=== PATIENT | female | born 1990 | race Caucasian/White ===

== ENCOUNTER → 2016-12-26 | Outpatient (CLI) | payer MEDICAID | LOC: MW.CHOBGYN 12:32 | PROVIDERS: ATTEND Advanced Practice Midwife | DX: Z34.90 Encounter for supervision of normal pregnancy, unspecified, unspecified trimester (principal) | CPT/HCPCS: 36415; 82950; 85027; 86850 ==

== ENCOUNTER 2017-01-11 17:20 | Outpatient (CLI) | payer MEDICAID | END 2017-01-11 19:30 | disposition home or self-care (01) | LOC: MW.OBCHECK 17:20 → MW.OB 17:29 → MW.OBCHECK 19:30 | PROVIDERS: ATTEND Obstetrics & Gynecology | DX: O26.899 Other specified pregnancy related conditions, unspecified trimester (principal) | CPT/HCPCS: 59025; 81001 ==

== ENCOUNTER 2017-01-17 00:25 | Observation (INO) | payer MEDICAID ==
[2017-01-17] MEDS ORDERED: Sodium Chloride 0.9% 1,000 ML IV SCH (00:45)
[2017-01-17 00:46] VITALS: BP 121/81
[2017-01-17] MEDS ORDERED: hydrOXYzine HCl 25 MG Tab PO ONE (01:54)
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
== END 2017-01-17 09:30 | disposition home or self-care (01) ==
LOC: MW.ED 00:25 → MW.OB 00:47 → MW.ED 00:50
PROVIDERS: ADMIT Obstetrics & Gynecology; ATTEND Obstetrics & Gynecology
DX: O75.89 Other specified complications of labor and delivery (principal); Z3A.35 35 weeks gestation of pregnancy; R10.9 Unspecified abdominal pain; S09.90XA Unspecified injury of head, initial encounter; R00.0 Tachycardia, unspecified; M79.602 Pain in left arm; O99.333 Smoking (tobacco) complicating pregnancy, third trimester; Y04.0XXA Assault by unarmed brawl or fight, initial encounter
CPT/HCPCS: 59025; 76805; 96360; 96361; 99284; A9270; G0378; J7040; 99285

== ENCOUNTER 2017-02-24 03:52 | Inpatient (IN) | payer MEDICAID ==
[2017-02-24] MEDS ORDERED: Ampicillin 2 GM in Sodium Chloride 0.9% 100 ML IV ONE (04:25)
[2017-02-24] MEDS ORDERED: Sodium Chloride 0.9% 10 ML Syringe FLUSH PRN (04:25)
[2017-02-24] MEDS ORDERED: Butorphanol 1 MG/ML SDV IVPUSH PRN (04:25)
[2017-02-24] MEDS ORDERED: Sodium Chloride 0.9% 2.5 ML Syringe FLUSH PRN (04:25)
[2017-02-24] MEDS ORDERED: Carboprost Tromethamine 250 MCG/1 ML Amp IM PRN (04:25)
[2017-02-24] MEDS ORDERED: Water For Irrigation,Sterile 1,000 ML Container IRR PRN (04:25)
[2017-02-24] MEDS ORDERED: Misoprostol 200 MCG Tab PO PRN (04:25)
[2017-02-24] MEDS ORDERED: Methylergonovine 0.2 MG/1 ML Amp IM PRN (04:25)
[2017-02-24] MEDS ORDERED: Lidocaine 1% 50 ML MDV INJECT PRN (04:25)
[2017-02-24] MEDS ORDERED: Oxytocin/Lactated Ringers 30 UNIT/500 ML BAG IV SCH ×2 (04:30→21:15)
[2017-02-24] MEDS: Lactated Ringers 1,000 ML IV SCH (05:04)
--- NOTE | 2017-02-24 05:21 | PCM.LDHP ---
L&D History of Present Illness - General Date of Service: 02/24/17 Admit Problem/Dx: Patient Status Order with Admit Dx/Problem 02/24/17 03:59 Patient Status [ADT] Routine 02/24/17 04:25 Patient Status [ADT] Routine Admission Diagnosis/Problem Admission Diagnosis/Problem 02/24/17 05:16 26 yo G1 EDC 02/26/2017 39 6/7wks. Comes today due to SROM clear fluid at 0300. A +, RI, GBS pos. Source of Information: Patient History Limitations: Reports: No limitations - History of Present Illness Improves with: Reports: None Worsens with: Reports: None Associated Symptoms: Reports: N - Related Data Allergies/Adverse Reactions: Allergies Allergy/AdvReac Type Severity Reaction Status Date / Time No Known Allergies Allergy Verified 01/17/17 00:26 Home Medications: Home Meds Pnv95/Iron Fum/Folic Acid [ Caplet] 1 tab PO DAILY 10/02/16 [History] Sertraline [Zoloft] 1 tab PO DAILY 10/30/16 [History] hydrOXYzine HCl [Atarax] 50 mg PO BID PRN 01/17/17 [History] Past Medical History - Past Health History Medical/Surgical History: Denies Medical/Surgical History HEENT History: Reports: None Cardiovascular History: Reports: None Genitourinary History: Reports: Renal calculus, Other (see below) Other Genitourinary History: kidney stones started this [employer] AGENT History: Reports: Neurological History: Reports: None Psychiatric History: Reports: Anxiety, Depression Endocrine/Metabolic History: Reports: None Hematologic History: Reports: Anemia Immunologic History: Reports: None Oncologic (Cancer) History: Reports: None Dermatologic History: Reports: None - Infectious Disease History Infectious Disease History: Reports: None - Past Surgical History Head Surgeries/Procedures: Reports: None Social & Family History - Family History Family Medical History: Noncontributory - Tobacco Use Smoking Status *Q: Current Every Day Smoker Years of Tobacco use: 4 Packs/Tins Daily: 0.5 Second Hand Smoke Exposure: Yes - Caffeine Use Caffeine Use: Reports: Coffee Caffeine Use Comment: 1/day - Alcohol Use Days Per Week of Alcohol Use: 1 Number of Drinks Per Day: 6 Total Drinks Per Week: 6 - Recreational Drug Use Recreational Drug Use: No H&P Review of Systems - Review of Systems: Review Of Systems: See Below General: Reports: no symptoms HEENT: Reports: no symptoms Pulmonary: Reports: No Symptoms Cardiovascular: Reports: no symptoms Gastrointestinal: Reports: No symptoms Genitourinary: Reports: no symptoms Musculoskeletal: Reports: no symptoms Skin: Reports: no symptoms Psychiatric: Reports: no symptoms Neurological: Reports: No Symptoms Hematologic/Lymphatic: Reports: no symptoms Immunologic: Reports: no symptoms L&D Exam - Exam Exam: See Below - Vital Signs Weight: 72.575 kg - OB Specific movement: active heart tones: present Heart Rate (FHR) Variability: Moderate (6-25 bmp) Presentation: Vertex Estimated Weight: 3800 - Exam General: alert, oriented HEENT: Hearing intact Lungs: Normal respiratory effort Abdomen: soft (gravid) Rectal Exam: Deferred Genitourinary: Cervical fluid Back Exam: full range of motion Extremities: normal inspection Skin: warm, dry, intact Neurological: cranial nerves intact Psychiatric: alert, normal affect, normal mood - Patient Data Lab Results last 24 hrs: Laboratory Results - last 24 hr 02/24/17 02/24/17 Range/Units 04:00 04:52 WBC 10.17 (4.0-11.0) K/uL RBC 2.97 L (4.30-5.90) M/uL Hgb 8.8 L (12.0-16.0) g/dL Hct 27.1 L (36.0-46.0) % MCV 91.2 (80.0-98.0) fL MCH 29.6 (27.0-32.0) pg MCHC 32.5 (31.0-37.0) g/dL RDW Std Deviation 44.0 (28.0-62.0) fl RDW Coeff of Peter 14 (11.0-15.0) % Plt Count 347 (150-400) K/uL MPV 8.20 (7.40-12.00) fL Membrane Rupture POSITIVE Result Diagrams: 02/24/17 04:52 - Problem List (1) Supervision of normal IUP (intrauterine ) in primigravida SNOMED Code(s): 02775182, 798185964, [id number], 121547347 ICD Code: Z34.00 - ENCNTR FOR SUPRVSN OF NORMAL FIRST , UNSP TRIMESTER Status: Acute Priority: High Current Visit: Yes Qualifiers: Trimester: third trimester Qualified Code(s): Z34.03 - Encounter for supervision of normal first , third trimester (2) SROM (spontaneous rupture of membranes) SNOMED Code(s): 308063195 ICD Code: KTW6165 - Status: Acute Priority: High Current Visit: Yes Problem List Initiated/Reviewed/Updated: Yes Orders Last 24hrs: Active Orders 24 hr Category Date Time Status Patient Status [ADT] Routine ADT 02/24/17 03:59 Active Patient Status [ADT] Routine ADT 02/24/17 04:25 Active Heart Tones [RC] CONTINUOUS Care 02/24/17 04:25 Active Non Stress Test [RC] PER UNIT ROUTINE Care 02/24/17 03:59 Active Non Stress Test [RC] PER UNIT ROUTINE Care 02/24/17 04:25 Active May Shower [RC] ASDIRECTED Care 02/24/17 04:25 Active Notify Provider [RC] PRN Care 02/24/17 04:25 Active Up ad Destiny [RC] ASDIRECTED Care 02/24/17 03:59 Active Up ad Destiny [RC] ASDIRECTED Care 02/24/17 04:25 Active Vaginal Exam [RC] Click To Edit Care 02/24/17 03:59 Active Vaginal Exam [RC] PRN Care 02/24/17 04:25 Active Vital Signs [RC] PER UNIT ROUTINE Care 02/24/17 03:59 Active Vital Signs [RC] PER UNIT ROUTINE Care 02/24/17 04:25 Active TYPE AND SCREEN [BBK] Routine Lab 02/24/17 04:52 Received Ampicillin 1 gm Med 02/24/17 09:00 Active Sodium Chloride 0.9% [Normal Saline] 50 ml IV Q4H Butorphanol [Stadol] Med 02/24/17 04:25 Active 1 mg IVPUSH ASDIRECTED PRN Carboprost Tromethamine [Hemabate DS] Med 02/24/17 04:25 Active 250 mcg IM ASDIRECTED PRN Lactated Ringers [Ringers, Lactated] 1,000 ml Med 02/24/17 04:30 Active IV ASDIRECTED Lidocaine 1% [Xylocaine 1%] Med 02/24/17 04:25 Active 50 ml INJECT .ONCE PRN Methylergonovine [Methergine] Med 02/24/17 04:25 Active 0.2 mg IM ASDIRECTED PRN Misoprostol [Cytotec] Med 02/24/17 04:25 Active 200 mcg PO .ONCE PRN Nalbuphine [Nubain] Med 02/24/17 04:25 Active 10 mg IVPUSH ASDIRECTED PRN Oxytocin/Lactated Ringers [Pitocin in LR 30 Units/500 Med 02/24/17 04:30 Active ML] 30 unit in 500 ml IV TITRATE Sodium Chloride 0.9% [Saline Flush] Med 02/24/17 04:25 Active 10 ml FLUSH ASDIRECTED PRN Sodium Chloride 0.9% [Saline Flush] Med 02/24/17 04:25 Active 2.5 ml FLUSH ASDIRECTED PRN Water For Irrigation,Sterile [Sterile Water for Med 02/24/17 04:25 Active Irrigation] 1,000 ml IRR ASDIRECTED PRN Scalp Electrode [WOMSER] Per Unit Routine Oth 02/24/17 04:25 Ordered Peripheral IV Insertion Adult [OM.PC] Routine Oth 02/24/17 04:25 Ordered Resuscitation Status Routine Resus Stat 02/24/17 03:59 Ordered Medication Orders Butorphanol Tartrate (Stadol) 1 mg IVPUSH ASDIRECTED PRN PRN Reason: Pain Stop: 02/25/17 04:26 Carboprost Tromethamine (Hemabate Ds) 250 mcg IM ASDIRECTED PRN PRN Reason: Post Hemorrhage Lactated Ringer's (Ringers, Lactated) 1,000 mls @ 150 mls/hr IV ASDIRECTED OLIVIA Last Admin: 02/24/17 05:04 Dose: 150 mls/hr Oxytocin/Lactated Ringer's (Pitocin In Lr 30 Units/500 Ml) 30 unit in 500 mls @ 500 mls/hr IV TITRATE OLIVIA; 500 MUNITS/MIN PRN Reason: Protocol Stop: 02/24/17 05:29 Ampicillin Sodium 1 gm/ Sodium (Chloride) 50 mls @ 100 mls/hr IV Q4H OLIVIA Lidocaine HCl (Xylocaine 1%) 50 ml INJECT .ONCE PRN PRN Reason: Laceration repair Methylergonovine Maleate (Methergine) 0.2 mg IM ASDIRECTED PRN PRN Reason: Post Hemorrhage Misoprostol (Cytotec) 200 mcg PO .ONCE PRN PRN Reason: Post Hemorrhage Nalbuphine HCl (Nubain) 10 mg IVPUSH ASDIRECTED PRN PRN Reason: Pain (severe 7-10) Stop: 02/26/17 04:26 Sodium Chloride (Saline Flush) 10 ml FLUSH ASDIRECTED PRN PRN Reason: Keep Vein Open Sodium Chloride (Saline Flush) 2.5 ml FLUSH ASDIRECTED PRN PRN Reason: Keep Vein Open Sterile Water (Sterile Water For Irrigation) 1,000 ml IRR ASDIRECTED PRN PRN Reason: delivery Assessment/Plan Comment:: A: 26 yo G1 EDC 02/26/2017 39 6/7wks. Comes today due to SROM clear fluid at 0300. A+, RI, GBS pos. P: Admit to L&D, start antibiotic for GBS pos. Cytotec if not ctx in 2 hours, pitocin prn, anticipate
[2017-02-24] MEDS ORDERED: Terbutaline 1 MG/ML SDV SUBCUT PRN ×2 (07:24→21:02)
[2017-02-24] MEDS ORDERED: Misoprostol 50 MCG (1/2 of 100 MCG) Tab PO SCH (07:30)
[2017-02-24] MEDS: Ampicillin 1 GM in Sodium Chloride 0.9% 50 ML IV SCH ×4 (09:27→21:01)
[2017-02-24] MEDS: Misoprostol 50 MCG (1/2 of 100 MCG) Tab PO SCH ×3 (12:36→20:34)
[2017-02-24] MEDS ORDERED: hydrOXYzine Pamoate 25 MG Cap PO PRN (21:01)
[2017-02-24] MEDS: Nalbuphine 10 MG/1 ML Vial IVPUSH PRN (23:20)
[2017-02-25] MEDS: Lactated Ringers 1,000 ML IV SCH ×4 (00:12→13:29)
[2017-02-25] MEDS ORDERED: Oxytocin/Lactated Ringers 30 UNIT/500 ML BAG IV SCH (00:30)
[2017-02-25] MEDS: Ampicillin 1 GM in Sodium Chloride 0.9% 50 ML IV SCH ×5 (00:47→17:03)
[2017-02-25] MEDS: Nalbuphine 10 MG/1 ML Vial IVPUSH PRN (02:01)
--- NOTE | 2017-02-25 03:01 | PCM.PREANE ---
Preanesthetic Assessment - Anesthesia/Transfusion/Family Hx Anesthesia History: No Prior Anesthesia Transfusion History: No Prior Transfusion(s) - Review of Systems General: No Symptoms Pulmonary: No Symptoms Cardiovascular: No Symptoms Gastrointestinal: No symptoms Neurological: No Symptoms Other: Reports: None - Physical Assessment Pulse: 101 O2 Sat by Pulse Oximetry: 99 Respiratory Rate: 20 Blood Pressure: 114/68 Height: 4 ft 11.84 in Weight: 72.575 kg ASA Class: 2 Mental Status: Alert & Oriented x3 Airway Class: Mallampati = 2 Dentition: Reports: Normal Dentition Thyro-Mental Finger Breadths: 3 Mouth Opening Finger Breadths: 3 ROM/Head Extension: Full Lungs: Clear to auscultation, Normal respiratory effort Cardiovascular: Regular Rate, Regular Rhythm - Lab Values: Laboratory Last Values WBC 10.17 K/uL (4.0-11.0) 02/24/17 04:52 RBC 2.97 M/uL (4.30-5.90) L 02/24/17 04:52 Hgb 8.8 g/dL (12.0-16.0) L 02/24/17 04:52 Hct 27.1 % (36.0-46.0) L 02/24/17 04:52 MCV 91.2 fL (80.0-98.0) 02/24/17 04:52 MCH 29.6 pg (27.0-32.0) 02/24/17 04:52 MCHC 32.5 g/dL (31.0-37.0) 02/24/17 04:52 RDW Std Deviation 44.0 fl (28.0-62.0) 02/24/17 04:52 RDW Coeff of Peter 14 % (11.0-15.0) 02/24/17 04:52 Plt Count 347 K/uL (150-400) 02/24/17 04:52 MPV 8.20 fL (7.40-12.00) 02/24/17 04:52 Membrane Rupture POSITIVE 02/24/17 04:00 Blood Type A POSITIVE 02/24/17 04:52 Antibody Screen NEGATIVE 02/24/17 04:52 - Allergies Allergies/Adverse Reactions: Allergies Allergy/AdvReac Type Severity Reaction Status Date / Time No Known Allergies Allergy Verified 01/17/17 00:26 - Acknowledgements Anesthesia Type Planned: Epidural Pt an Appropriate Candidate for the Planned Anesthesia: Yes Alternatives and Risks of Anesthesia Discussed w Pt/Guardian: Yes Pt/Guardian Understands and Agrees with Anesthesia Plan: Yes PreAnesthesia Questionnaire - Past Health History Medical/Surgical History: Denies Medical/Surgical History HEENT History: Reports: None Cardiovascular History: Reports: None Respiratory History: Reports: None Gastrointestinal History: Reports: GERD Genitourinary History: Reports: Renal calculus, Other (see below) Other Genitourinary History: 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[employer] History: Reports: : 1 Para: 0 LMP (Approximate): Musculoskeletal History: Reports: None Neurological History: Reports: None Psychiatric History: Reports: Anxiety, Depression Endocrine/Metabolic History: Reports: Obesity/BMI 30+ Hematologic History: Reports: Anemia Immunologic History: Reports: None Oncologic (Cancer) History: Reports: None Dermatologic History: Reports: None - Infectious Disease History Infectious Disease History: Reports: None - Past Surgical History Head Surgeries/Procedures: Reports: None - SUBSTANCE USE Smoking Status *Q: Current Every Day Smoker Tobacco Use Within Last Twelve Months: Cigarettes Second Hand Smoke Exposure: Yes Days Per Week of Alcohol Use: 1 Number of Drinks Per Day: 6 Total Drinks Per Week: 6 Recreational Drug Use History: No - HOME MEDS Home Medications: Home Meds Pnv95/Iron Fum/Folic Acid [ Caplet] 1 tab PO DAILY 10/02/16 [History] Sertraline [Zoloft] 1 tab PO DAILY 10/30/16 [History] hydrOXYzine HCl [Atarax] 50 mg PO BID PRN 01/17/17 [History] - CURRENT (IN HOUSE) MEDS Current Meds: Current Medications Butorphanol Tartrate (Stadol) 1 mg IVPUSH ASDIRECTED PRN PRN Reason: Pain Stop: 02/25/17 04:26 Carboprost Tromethamine (Hemabate Ds) 250 mcg IM ASDIRECTED PRN PRN Reason: Post Hemorrhage Hydroxyzine Pamoate (Vistaril) 50 mg PO BEDTIME PRN PRN Reason: Sleep Last Admin: 02/24/17 22:26 Dose: 50 mg Lactated Ringer's (Ringers, Lactated) 1,000 mls @ 150 mls/hr IV ASDIRECTED OLIVIA Last Admin: 02/25/17 00:12 Dose: 150 mls/hr Ampicillin Sodium 1 gm/ Sodium (Chloride) 50 mls @ 100 mls/hr IV Q4H OLIVIA Last Admin: 02/25/17 00:47 Dose: 100 mls/hr Oxytocin/Lactated Ringer's (Pitocin In Lr 30 Units/500 Ml) 30 unit in 500 mls @ 2 mls/hr IV TITRATE OLIVIA; 2 MUNITS/MIN PRN Reason: Protocol Lidocaine HCl (Xylocaine 1%) 50 ml INJECT .ONCE PRN PRN Reason: Laceration repair Methylergonovine Maleate (Methergine) 0.2 mg IM ASDIRECTED PRN PRN Reason: Post Hemorrhage Misoprostol (Cytotec) 200 mcg PO .ONCE PRN PRN Reason: Post Hemorrhage Misoprostol (Cytotec) 50 mcg PO Q4H OLIVIA Last Admin: 02/24/17 20:34 Dose: 50 mcg Nalbuphine HCl (Nubain) 10 mg IVPUSH ASDIRECTED PRN PRN Reason: Pain (severe 7-10) Stop: 02/26/17 04:26 Last Admin: 02/25/17 02:01 Dose: 10 mg Sodium Chloride (Saline Flush) 10 ml FLUSH ASDIRECTED PRN PRN Reason: Keep Vein Open Sodium Chloride (Saline Flush) 2.5 ml FLUSH ASDIRECTED PRN PRN Reason: Keep Vein Open Sterile Water (Sterile Water For Irrigation) 1,000 ml IRR ASDIRECTED PRN PRN Reason: delivery Terbutaline Sulfate (Brethine) 0.25 mg SUBCUT ASDIRECTED PRN PRN Reason: Tacysystole Terbutaline Sulfate (Brethine) 0.25 mg SUBCUT ASDIRECTED PRN PRN Reason: Tacysystole Discontinued Medications Ampicillin Sodium 2 gm/ Sodium (Chloride) 100 mls @ 200 mls/hr IV ONETIME ONE Stop: 02/24/17 04:54 Last Admin: 02/24/17 05:03 Dose: 200 mls/hr Oxytocin/Lactated Ringer's (Pitocin In Lr 30 Units/500 Ml) 30 unit in 500 mls @ 500 mls/hr IV TITRATE OLIVIA; 500 MUNITS/MIN PRN Reason: Protocol Stop: 02/24/17 05:29 Oxytocin/Lactated Ringer's (Pitocin In Lr 30 Units/500 Ml) 30 unit in 500 mls @ 2 mls/hr IV TITRATE OLIVIA; 2 MUNITS/MIN PRN Reason: Protocol Misoprostol (Cytotec) 50 mcg PO Q6H OLIVIA Last Admin: 02/24/17 08:25 Dose: 50 mcg
[2017-02-25] MEDS ORDERED: Ropivacaine HCl/PF 100 ML ONE ×3 (03:08→16:59)
[2017-02-25] MEDS ORDERED: fentaNYL 100 MCG/2 ML SDV ONE (03:08)
[2017-02-25] MEDS ORDERED: Bupivacaine 0.5% 10 ML SDV ONE ×2 (10:17→16:59)
[2017-02-25] MEDS ORDERED: Acetaminophen 500 MG Tab PO ONE (17:08)
[2017-02-25] MEDS ORDERED: Oxytocin/Lactated Ringers 30 UNIT/500 ML BAG ONE (18:18)
[2017-02-25] MEDS ORDERED: Benzocaine/Menthol 20%-0.5% Spray 78 GM Cannister TOP PRN (18:22)
[2017-02-25] MEDS ORDERED: Acetaminophen 500 MG Tab PO PRN (18:22)
[2017-02-25] MEDS ORDERED: Bisacodyl 10 MG Supp RECTAL PRN (18:22)
[2017-02-25] MEDS ORDERED: Docusate Sodium 100 MG Cap PO PRN (18:22)
[2017-02-25] MEDS ORDERED: Ibuprofen 800 MG Tab PO PRN (18:22)
[2017-02-25] MEDS ORDERED: Lanolin 100% Cream 7 GM Tube TOP PRN (18:22)
[2017-02-25] MEDS ORDERED: Ibuprofen 400 MG Tab PO PRN (18:22)
[2017-02-25] MEDS ORDERED: Witch Hazel Medicated Pads 40/Jar TOP PRN (18:22)
[2017-02-25] MEDS ORDERED: Oxytocin 10 Units/1 ML SDV IV ONE (18:30)
--- NOTE | 2017-02-25 18:42 | PCM.DEL ---
L & D Note - General Info Date of Service: 02/25/17 Mother's Due Date: 02/26/17 - Delivery Note Labor: augmented by oxytocin Cervical Ripening Method: Misoprostil Delivery Outcome: Livebirth Infant Delivery Method: Spontaneous Vaginal Delivery Infant Delivery Mode: Spontaneous Presentation: Vertex Nuchal cord: present Anesthesia Type: Epidural Amniotic Fluid Description: Clear (prolonted ROM 39.5 hours) Laceration: 1st degree Suture type: vicryl Suture size: 3-0 Placenta: intact, spontaneous Cord: 3 vessels Estimated blood loss: 600 Resuscitation needed: Yes : stimulated, warmed Score 1 min: 3 Score 5 min: 6 Score 10 min: 7 Second Stage Interventions: Reports: Laboring Down, Pushing Effectively Delivery Comments (Free Text/Narrative):: of viable female over intact perineum with effective pushing. Head delivered with loose nuchle cord, shoulders and body followed easily. Infant to mother abd with RN at for evaluation. Terminal meconium noted. No spot cry, Cord clamped and cut and infant went to warmer with RN and Anes in attendance. Peds notified. Pitocin to IVF, Placenta delivered grossly intact. Bleeding heavy and methergin given IM. Bimanual normal. Bleeding improved and inspection noted small 1st degree lac that was repaired in the usual manor. EBL 600cc, EPGARS 3/6/7, Infant to nursery. Peds came to nursery. Mother left in stable condition. Induction Criteria - Augmentation Estimated Pelvis: Reports: Adequate weight estimated:: Reports: AGA Estimated weight if LGA: 3500 kg Reassuring monitoring strip: Yes Absence of tachy systole: Yes - General Info Date of Service: 02/25/17 Functional Status: Reports: pain controlled - Review of Systems General: Reports: No Symptoms HEENT: Reports: no symptoms Pulmonary: Reports: no symptoms Cardiovascular: Reports: No Symptoms Gastrointestinal: Reports: No symptoms Genitourinary: Reports: no symptoms Musculoskeletal: Reports: no symptoms Skin: Reports: no symptoms Neurological: Reports: No Symptoms Psychiatric: Reports: no symptoms - Patient Data Vitals - most recent: Last Vital Signs Temp 37.5 C 02/25/17 17:11 Pulse 101 H 02/25/17 03:01 Resp 20 02/25/17 03:01 BP 114/68 02/25/17 03:01 Pulse Ox 99 04/29/17 03:01 Weight - most recent: 72.575 kg Lab Results last 24 hrs: Laboratory Results - last 24 hr 02/24/17 02/24/17 02/25/17 Range/Units 04:52 04:52 05:15 WBC 10.17 (4.0-11.0) K/uL RBC 2.97 L (4.30-5.90) M/uL Hgb 8.8 L 8.3 L (12.0-16.0) g/dL Hct 27.1 L 26.1 L (36.0-46.0) % MCV 91.2 (80.0-98.0) fL MCH 29.6 (27.0-32.0) pg MCHC 32.5 (31.0-37.0) g/dL RDW Std Deviation 44.0 (28.0-62.0) fl RDW Coeff of Peter 14 (11.0-15.0) % Plt Count 347 (150-400) K/uL MPV 8.20 (7.40-12.00) fL Blood Type A POSITIVE Antibody Screen NEGATIVE Crossmatch See Detail Med Orders - Current: Current Medications Acetaminophen (Tylenol Extra Strength) 500 mg PO Q4H PRN PRN Reason: Pain Acetaminophen (Tylenol Extra Strength) 1,000 mg PO Q4H PRN PRN Reason: Pain Benzocaine/Menthol (Dermoplast Pain Relief 20%-0.5% [facility]) 78 gm TOP ASDIRECTED PRN PRN Reason: Perineal Comfort Measure Bisacodyl (Dulcolax) 10 mg RECTAL .ONCE PRN PRN Reason: Constipation Docusate Sodium (Colace) 100 mg PO BID PRN PRN Reason: Constipation Emollient Ointment (Lansinoh Hpa) 0 gm TOP ASDIRECTED PRN PRN Reason: Sore Nipples Ibuprofen (Motrin) 400 mg PO Q4H PRN PRN Reason: Pain Ibuprofen (Motrin) 800 mg PO Q6H PRN PRN Reason: Pain Oxycodone HCl (Oxycodone) 5 mg PO Q2H PRN PRN Reason: Pain Oxytocin (Pitocin) 30 unit IV ONETIME ONE Stop: 02/25/17 18:31 Witch Lyric (Tucks) 1 pad TOP ASDIRECTED PRN PRN Reason: comfort care Discontinued Medications Acetaminophen (Tylenol Extra Strength) 1,000 mg PO ONETIME ONE Stop: 02/25/17 17:09 Last Admin: 02/25/17 17:11 Dose: 1,000 mg Bupivacaine HCl (Sensorcaine-Mpf 0.5%) Confirm Administered Dose 10 ml .ROUTE .STK-MED ONE Stop: 02/25/17 10:18 Bupivacaine HCl (Sensorcaine-Mpf 0.5%) Confirm Administered Dose 10 ml .ROUTE .STK-MED ONE Stop: 02/25/17 17:00 Butorphanol Tartrate (Stadol) 1 mg IVPUSH ASDIRECTED PRN PRN Reason: Pain Stop: 02/25/17 04:26 Carboprost Tromethamine (Hemabate Ds) 250 mcg IM ASDIRECTED PRN PRN Reason: Post Hemorrhage Fentanyl (Sublimaze) Confirm Administered Dose 100 mcg .ROUTE .STK-MED ONE Stop: 02/25/17 03:09 Hydroxyzine Pamoate (Vistaril) 50 mg PO BEDTIME PRN PRN Reason: Sleep Last Admin: 02/24/17 22:26 Dose: 50 mg Ampicillin Sodium 2 gm/ Sodium (Chloride) 100 mls @ 200 mls/hr IV ONETIME ONE Stop: 02/24/17 04:54 Last Admin: 02/24/17 05:03 Dose: 200 mls/hr Lactated Ringer's (Ringers, Lactated) 1,000 mls @ 150 mls/hr IV ASDIRECTED OLIVIA Last Admin: 02/25/17 13:29 Dose: 150 mls/hr Oxytocin/Lactated Ringer's (Pitocin In Lr 30 Units/500 Ml) 30 unit in 500 mls @ 500 mls/hr IV TITRATE OLIVIA; 500 MUNITS/MIN PRN Reason: Protocol Stop: 02/24/17 05:29 Ampicillin Sodium 1 gm/ Sodium (Chloride) 50 mls @ 100 mls/hr IV Q4H OLIVIA Last Admin: 02/25/17 17:03 Dose: 100 mls/hr Oxytocin/Lactated Ringer's (Pitocin In Lr 30 Units/500 Ml) 30 unit in 500 mls @ 2 mls/hr IV TITRATE OLIVIA; 2 MUNITS/MIN PRN Reason: Protocol Oxytocin/Lactated Ringer's (Pitocin In Lr 30 Units/500 Ml) 30 unit in 500 mls @ 2 mls/hr IV TITRATE OLIVIA; 2 MUNITS/MIN PRN Reason: Protocol Last Titration: 02/25/17 12:30 Dose: 18 munits/min, 18 mls/hr Ropivacaine (Naropin 0.2%) Confirm Administered Dose 100 mls @ as directed .ROUTE .STK-MED ONE Stop: 02/25/17 03:09 Ropivacaine (Naropin 0.2%) Confirm Administered Dose 100 mls @ as directed .ROUTE .STK-MED ONE Stop: 02/25/17 10:18 Ropivacaine (Naropin 0.2%) Confirm Administered Dose 100 mls @ as directed .ROUTE .STK-MED ONE Stop: 02/25/17 17:00 Oxytocin/Lactated Ringer's (Pitocin In Lr 30 Units/500 Ml) Confirm Administered Dose 30 unit in 500 mls @ as directed .ROUTE .STK-MED ONE Stop: 02/25/17 18:19 Lidocaine HCl (Xylocaine 1%) 50 ml INJECT .ONCE PRN PRN Reason: Laceration repair Methylergonovine Maleate (Methergine) 0.2 mg IM ASDIRECTED PRN PRN Reason: Post Hemorrhage Misoprostol (Cytotec) 200 mcg PO .ONCE PRN PRN Reason: Post Hemorrhage Misoprostol (Cytotec) [address] [facility] Last Admin: 02/24/17 08:25 Dose: 50 mcg Misoprostol (Cytotec) [address] [facility] Last Admin: 02/24/17 20:34 Dose: 50 mcg Nalbuphine HCl (Nubain) 10 mg IVPUSH ASDIRECTED PRN PRN Reason: Pain (severe 7-10) Stop: 02/26/17 04:26 Last Admin: 02/25/17 02:01 Dose: 10 mg Sodium Chloride (Saline Flush) 10 ml FLUSH ASDIRECTED PRN PRN Reason: Keep Vein Open Sodium Chloride (Saline Flush) 2.5 ml FLUSH ASDIRECTED PRN PRN Reason: Keep Vein Open Sterile Water (Sterile Water For Irrigation) 1,000 ml IRR ASDIRECTED PRN PRN Reason: delivery Terbutaline Sulfate (Brethine) 0.25 mg SUBCUT ASDIRECTED PRN PRN Reason: Tacysystole Terbutaline Sulfate (Brethine) 0.25 mg SUBCUT ASDIRECTED PRN PRN Reason: Tacysystole - Exam General: alert, oriented, cooperative, no acute distress Lungs: Normal respiratory effort Abdomen: soft, no tenderness, no distension (Female) Exam: Normal external exam, Normal bimanual exam, Vaginal bleeding Back Exam: full range of motion Extremities: no edema Skin: warm, dry, intact Wound/Incisions: healing well Neurological: no new focal deficit Psy/Mental Status: alert, normal affect, normal mood - Problem List & Annotations (1) Supervision of normal IUP (intrauterine ) in primigravida SNOMED Code(s): 47380263, 063564463, 157765312, 334966717 Code(s): Z34.00 - ENCNTR FOR SUPRVSN OF NORMAL FIRST , UNSP TRIMESTER Status: Acute Priority: High Current Visit: Yes Qualifiers: Trimester: third trimester Qualified Code(s): Z34.03 - Encounter for supervision of normal first , third trimester (2) SROM (spontaneous rupture of membranes) SNOMED Code(s): 194293763 Code(s): DFW7765 - Status: Acute Priority: High Current Visit: Yes (3) Prolonged antepartum rupture of membranes SNOMED Code(s): 23307655 Code(s): O42.90 - DARREL ROM, 7TH0 BETW RUPT & ONST LABR, UNSP WEEKS OF GEST Status: Acute Priority: High Current Visit: Yes (4) (normal spontaneous vaginal delivery) SNOMED Code(s): 60432403 Code(s): O80 - ENCOUNTER FOR FULL-TERM UNCOMPLICATED DELIVERY Status: Acute Priority: Medium Current Visit: Yes - Problem List Review Problem List Initiated/Reviewed/Updated: Yes - My Orders Last 24 Hours: My Active Orders 02/24/17 21:02 Bedrest Bathroom Privileges [RC] ASDIRECTED Communication Order [RC] ASDIRECTED Communication Order [RC] ASDIRECTED Notify Provider [RC] PRN Oxygen Therapy [RC] ASDIRECTED Vaginal Exam [RC] PRN Vital Signs [RC] PER UNIT ROUTINE 02/25/17 18:22 May Shower [RC] ASDIRECTED Up ad Destiny [RC] ASDIRECTED Vital Signs [RC] PER UNIT ROUTINE Acetaminophen [Tylenol Extra Strength] 1,000 mg PO Q4H PRN Acetaminophen [Tylenol Extra Strength] 500 mg PO Q4H PRN Benzocaine/Menthol [Dermoplast Pain Relief 20%-0.5% [facility]] 78 gm TOP ASDIRECTED PRN Bisacodyl [Dulcolax] 10 mg RECTAL .ONCE PRN Docusate Sodium [Colace] 100 mg PO BID PRN Ibuprofen [Motrin] 400 mg PO Q4H PRN Ibuprofen [Motrin] 800 mg PO Q6H PRN Lanolin [Lansinoh HPA] See Dose Instructions TOP ASDIRECTED PRN Witch Lyric [Tucks] 1 pad TOP ASDIRECTED PRN oxyCODONE 5 mg PO Q2H PRN Assess Lochia [WOMSER] Per Unit Routine Assess Uterine Involution [WOMSER] Per Unit Routine Peripheral IV Discontinue [OM.PC] Routine Resuscitation Status Routine 02/25/17 18:26 Patient Status [ADT] Routine 02/25/17 18:30 Oxytocin [Pitocin] 30 unit IV ONETIME ONE 02/25/17 20:00 HEMOGLOBIN/HEMATOCRIT,HH [HEME] Timed 02/26/17 05:00 HEMOGLOBIN/HEMATOCRIT,HH [HEME] Routine 02/26/17 Breakfast Regular Diet [DIET] - Assessment Assessment:: of viable female. 1st degree lac with repair. EBL 600cc, APGARS 3/6/7. stable - Plan Plan:: A: 26 yo G1 EDC 02/26/2017 39 6/7wks. Comes today due to SROM clear fluid at 0300. A+, RI, GBS pos. P: Admit to L&D, start antibiotic for GBS pos. Cytotec if not ctx in 2 hours, pitocin prn, anticipate Delivered P: routine pp plan of care. H&H at 2000 tonight and again in the am.
[2017-02-25] MEDS: Misoprostol 50 MCG (1/2 of 100 MCG) Tab PO SCH (21:47)
[2017-02-26] MEDS ORDERED: diphenhydrAMINE 25 MG Cap PO ONE (06:08)
[2017-02-26] MEDS ORDERED: Acetaminophen 325 MG Tab PO ONE (06:08)
--- NOTE | 2017-02-26 06:20 | PCM.PNPP ---
- General Info Date of Service: 02/26/17 Admission Dx/Problem (Free Text): Patient Status Order with Admit Dx/Problem 02/24/17 03:59 Patient Status [ADT] Routine 02/24/17 04:25 Patient Status [ADT] Routine Admission Diagnosis/Problem Admission Diagnosis/Problem 02/24/17 05:16 26 yo G1 EDC 02/26/2017 39 6/7wks. Comes today due to SROM clear fluid at 0300. A +, RI, GBS pos. Functional Status: Reports: pain controlled, tolerating diet, ambulating, urinating - Review of Systems General: Reports: No Symptoms HEENT: Reports: no symptoms Pulmonary: Reports: no symptoms Cardiovascular: Reports: No Symptoms Gastrointestinal: Reports: No symptoms Genitourinary: Reports: no symptoms Musculoskeletal: Reports: no symptoms Skin: Reports: no symptoms Neurological: Reports: No Symptoms Psychiatric: Reports: no symptoms - General Info Date of Service: 02/26/17 - Patient Data Vital Signs - most recent: Last Vital Signs Temp 36.2 C 02/25/17 20:40 Pulse 101 H 02/25/17 20:00 Resp 17 02/25/17 20:00 BP 117/68 02/25/17 20:00 Pulse Ox 97 02/25/17 20:00 Weight - most recent: 72.575 kg Lab Results - last 24 hrs: Laboratory Results - last 24 hr 02/25/17 02/26/17 Range/Units 19:59 06:00 Hgb 7.8 L 5.9 L (12.0-16.0) g/dL Hct 23.9 L 17.6 L (36.0-46.0) % Med Orders - Current: Current Medications Acetaminophen (Tylenol Extra Strength) 500 mg PO Q4H PRN PRN Reason: Pain Acetaminophen (Tylenol Extra Strength) 1,000 mg PO Q4H PRN PRN Reason: Pain Benzocaine/Menthol (Dermoplast Pain Relief 20%-0.5% [facility]) 78 gm TOP ASDIRECTED PRN PRN Reason: Perineal Comfort Measure Bisacodyl (Dulcolax) 10 mg RECTAL .ONCE PRN PRN Reason: Constipation Docusate Sodium (Colace) 100 mg PO BID PRN PRN Reason: Constipation Emollient Ointment (Lansinoh Hpa) 0 gm TOP ASDIRECTED PRN PRN Reason: Sore Nipples Ibuprofen (Motrin) 400 mg PO Q4H PRN PRN Reason: Pain Ibuprofen (Motrin) 800 mg PO Q6H PRN PRN Reason: Pain Oxycodone HCl (Oxycodone) 5 mg PO Q2H PRN PRN Reason: Pain Witch Lyric (Tucks) 1 pad TOP ASDIRECTED PRN PRN Reason: comfort care Discontinued Medications Acetaminophen (Tylenol Extra Strength) 1,000 mg PO ONETIME ONE Stop: 02/25/17 17:09 Last Admin: 02/25/17 17:11 Dose: 1,000 mg Acetaminophen (Tylenol) 650 mg PO NOW ONE Stop: 02/26/17 06:09 Bupivacaine HCl (Sensorcaine-Mpf 0.5%) Confirm Administered Dose 10 ml .ROUTE .STK-MED ONE Stop: 02/25/17 10:18 Last Admin: 02/25/17 21:46 Dose: Not Given Bupivacaine HCl (Sensorcaine-Mpf 0.5%) Confirm Administered Dose 10 ml .ROUTE .STK-MED ONE Stop: 02/25/17 17:00 Last Admin: 02/25/17 21:46 Dose: Not Given Butorphanol Tartrate (Stadol) 1 mg IVPUSH ASDIRECTED PRN PRN Reason: Pain Stop: 02/25/17 04:26 Carboprost Tromethamine (Hemabate Ds) 250 mcg IM ASDIRECTED PRN PRN Reason: Post Hemorrhage Diphenhydramine HCl (Benadryl) 25 mg PO ONETIME ONE Stop: 02/26/17 06:09 Fentanyl (Sublimaze) Confirm Administered Dose 100 mcg .ROUTE .STK-MED ONE Stop: 02/25/17 03:09 Last Admin: 02/25/17 21:46 Dose: Not Given Hydroxyzine Pamoate (Vistaril) 50 mg PO BEDTIME PRN PRN Reason: Sleep Last Admin: 02/24/17 22:26 Dose: 50 mg Ampicillin Sodium 2 gm/ Sodium (Chloride) 100 mls @ 200 mls/hr IV ONETIME ONE Stop: 02/24/17 04:54 Last Admin: 02/24/17 05:03 Dose: 200 mls/hr Lactated Ringer's (Ringers, Lactated) 1,000 mls @ 150 mls/hr IV ASDIRECTED OLIVIA Last Admin: 02/25/17 13:29 Dose: 150 mls/hr Oxytocin/Lactated Ringer's (Pitocin In Lr 30 Units/500 Ml) 30 unit in 500 mls @ 500 mls/hr IV TITRATE OLIVIA; 500 MUNITS/MIN PRN Reason: Protocol Stop: 02/24/17 05:29 Last Admin: 02/25/17 21:45 Dose: Not Given Ampicillin Sodium 1 gm/ Sodium (Chloride) 50 mls @ 100 mls/hr IV Q4H OLIVIA Last Admin: 02/25/17 17:03 Dose: 100 mls/hr Oxytocin/Lactated Ringer's (Pitocin In Lr 30 Units/500 Ml) 30 unit in 500 mls @ 2 mls/hr IV TITRATE OLIVIA; 2 MUNITS/MIN PRN Reason: Protocol Oxytocin/Lactated Ringer's (Pitocin In Lr 30 Units/500 Ml) 30 unit in 500 mls @ 2 mls/hr IV TITRATE OLIVIA; 2 MUNITS/MIN PRN Reason: Protocol Last Titration: 02/25/17 12:30 Dose: 18 munits/min, 18 mls/hr Ropivacaine (Naropin 0.2%) Confirm Administered Dose 100 mls @ as directed .ROUTE .ST-MED ONE Stop: 02/25/17 03:09 Last Admin: 02/25/17 21:46 Dose: Not Given Ropivacaine (Naropin 0.2%) Confirm Administered Dose 100 mls @ as directed .ROUTE .ST-MED ONE Stop: 02/25/17 10:18 Last Admin: 02/25/17 21:46 Dose: Not Given Ropivacaine (Naropin 0.2%) Confirm Administered Dose 100 mls @ as directed .ROUTE .ST-MED ONE Stop: 02/25/17 17:00 Last Admin: 02/25/17 21:46 Dose: Not Given Oxytocin/Lactated Ringer's (Pitocin In Lr 30 Units/500 Ml) Confirm Administered Dose 30 unit in 500 mls @ as directed .ROUTE .STK-MED ONE Stop: 02/25/17 18:19 Last Admin: 02/25/17 21:46 Dose: Not Given Lidocaine HCl (Xylocaine 1%) 50 ml INJECT .ONCE PRN PRN Reason: Laceration repair Methylergonovine Maleate (Methergine) 0.2 mg IM ASDIRECTED PRN PRN Reason: Post Hemorrhage Misoprostol (Cytotec) 200 mcg PO .ONCE PRN PRN Reason: Post Hemorrhage Misoprostol (Cytotec) 50 mcg PO Q6H [facility] Last Admin: 02/24/17 08:25 Dose: 50 mcg Misoprostol (Cytotec) 50 mcg PO Q4H [facility] Last Admin: 02/25/17 21:47 Dose: Not Given Nalbuphine HCl (Nubain) 10 mg IVPUSH ASDIRECTED PRN PRN Reason: Pain (severe 7-10) Stop: 02/26/17 04:26 Last Admin: 02/25/17 02:01 Dose: 10 mg Oxytocin (Pitocin) 30 unit IV ONETIME ONE Stop: 02/25/17 18:31 Last Admin: 02/25/17 21:47 Dose: Not Given Sodium Chloride (Saline Flush) 10 ml FLUSH ASDIRECTED PRN PRN Reason: Keep Vein Open Sodium Chloride (Saline Flush) 2.5 ml FLUSH ASDIRECTED PRN PRN Reason: Keep Vein Open Sterile Water (Sterile Water For Irrigation) 1,000 ml IRR ASDIRECTED PRN PRN Reason: delivery Terbutaline Sulfate (Brethine) 0.25 mg SUBCUT ASDIRECTED PRN PRN Reason: Tacysystole Terbutaline Sulfate (Brethine) 0.25 mg SUBCUT ASDIRECTED PRN PRN Reason: Tacysystole - Infant Interaction Infant Disposition, : Clements to Nursery Infant Interaction: Holding Infant Feeding: Breastfed Infant; Nursed Well Support Person: Significant Other - Recovery Exam Fundal Tone: Firm Fundal Level: 1 Fingerbreadths Below Umbilicus Fundal Placement: Midline Lochia Amount: Scant Lochia Color: Rubra/Red Other Perinuem Description: intact Episiotomy/Laceration: Approximated Bladder Status: Voiding Urinary Elimination: Voided - Exam General: alert, oriented, cooperative, no acute distress Lungs: Normal respiratory effort Abdomen: soft, no tenderness, no distension Extremities: no edema Skin: warm, dry, intact Wound/Incisions: healing well Neurological: no new focal deficit Psy/Mental Status: alert, normal affect, normal mood Physical Findings Comment:: Hgb 5.9. Will transfus 2 units PRBC. - Problem List & Annotations (1) Supervision of normal IUP (intrauterine ) in primigravida SNOMED Code(s): 85955635, 398764697, 534553627, 348527061 Code(s): Z34.00 - ENCNTR FOR SUPRVSN OF NORMAL FIRST , UNSP TRIMESTER Status: Acute Priority: High Current Visit: Yes Qualifiers: Trimester: third trimester Qualified Code(s): Z34.03 - Encounter for supervision of normal first , third trimester (2) SROM (spontaneous rupture of membranes) SNOMED Code(s): 799845246 Code(s): FZQ2597 - Status: Acute Priority: High Current Visit: Yes (3) Prolonged antepartum rupture of membranes SNOMED Code(s): 82494626 Code(s): O42.90 - DARREL ROM, 7TH0 BETW RUPT & ONST LABR, UNSP WEEKS OF GEST Status: Acute Priority: High Current Visit: Yes (4) (normal spontaneous vaginal delivery) SNOMED Code(s): 43482625 Code(s): O80 - ENCOUNTER FOR FULL-TERM UNCOMPLICATED DELIVERY Status: Acute Priority: Medium Current Visit: Yes (5) Low hemoglobin SNOMED Code(s): 420509526 Code(s): D64.9 - ANEMIA, UNSPECIFIED Status: Acute Priority: High Current Visit: Yes - Problem List Review Problem List Initiated/Reviewed/Updated: Yes - My Orders Last 24 Hours: My Active Orders 02/25/17 18:22 May Shower [RC] ASDIRECTED Up ad Destiny [RC] ASDIRECTED Vital Signs [RC] PER UNIT ROUTINE Acetaminophen [Tylenol Extra Strength] 1,000 mg PO Q4H PRN Acetaminophen [Tylenol Extra Strength] 500 mg PO Q4H PRN Benzocaine/Menthol [Dermoplast Pain Relief 20%-0.5% Sims] 78 gm TOP ASDIRECTED PRN Bisacodyl [Dulcolax] 10 mg RECTAL .ONCE PRN Docusate Sodium [Colace] 100 mg PO BID PRN Ibuprofen [Motrin] 400 mg PO Q4H PRN Ibuprofen [Motrin] 800 mg PO Q6H PRN Lanolin [Lansinoh HPA] See Dose Instructions TOP ASDIRECTED PRN Witch Lyric [Tucks] 1 pad TOP ASDIRECTED PRN oxyCODONE 5 mg PO Q2H PRN Assess Lochia [WOMSER] Per Unit Routine Assess Uterine Involution [WOMSER] Per Unit Routine Peripheral IV Discontinue [OM.PC] Routine Resuscitation Status Routine 02/25/17 18:26 Patient Status [ADT] Routine 02/26/17 06:08 Transfuse PRBC [Transfuse Red Blood Cells] [COMM] Urgent 02/26/17 13:00 HEMOGLOBIN/HEMATOCRIT,HH [HEME] Timed 02/26/17 Breakfast Regular Diet [DIET] - Assessment Assessment:: of viable female. 1st degree lac with repair. EBL 600cc, APGARS 6/7. stable Post day 1: VSS, AF, Labs reviewed Hgb 8.3 prior to delivery, 1h pp 7.8 and this am 5.9., Not symptomatic, denies dizziness or light headedness. Lochia scant, perineum intact. - Plan Plan:: A: 26 yo G1 EDC 02/26/2017 39 6/7wks. Comes today due to SROM clear fluid at 0300. A+, RI, GBS pos. P: Admit to L&D, start antibiotic for GBS pos. Cytotec if not ctx in 2 hours, pitocin prn, anticipate Delivered P: routine pp plan of care. H&H at 2000 tonight and again in the am. Post day 1 P: give 2units PRBC, recheck Hgb 6h after, will keep a second night due to low Hgb. Routine pp plan of care will continue. Ask pt if she desires a Nicotine patch and she declined. Advised her to not go outside to smoke due to medical condition.
--- NOTE | 2017-02-26 09:11 | PCM48HPAN ---
Post Anesthesia Note - EVALUATION WITHIN 48HRS OF ANESTHETIC Vital Signs in Normal Range: Yes Patient Participated in Evaluation: Yes Respiratory Function Stable: Yes Airway Patent: Yes Cardiovascular Function Stable: Yes Hydration Status Stable: Yes Pain Control Satisfactory: Yes Nausea and Vomiting Control Satisfactory: Yes Mental Status Recovered: Yes - COMMENTS/OBSERVATIONS Free Text/Narrative:: Post delivery anemia noted. 2 units PRBC pending
[2017-02-26] MEDS: oxyCODONE 5 MG Tab PO PRN ×3 (14:43→21:36)
[2017-02-26] MEDS: Acetaminophen 500 MG Tab PO PRN ×2 (16:18→21:35)
[2017-02-27] MEDS: oxyCODONE 5 MG Tab PO PRN (08:35)
[2017-02-27] MEDS: Acetaminophen 500 MG Tab PO PRN (08:37)
[2017-02-27 08:41] VITALS: BP 118/78
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
== END 2017-02-27 11:25 | disposition home or self-care (01) | DRG 775 ==
LOC: MW.OBCHECK 03:52 → MW.OB 03:55 → MW.OBCHECK 04:25 → MW.OB 04:25 → OBSVTOIN 02-25 17:49 → MW.OB 02-25 21:00
PROVIDERS: ADMIT Obstetrics & Gynecology; ATTEND Obstetrics & Gynecology
PROC: 10E0XZZ Delivery of Products of Conception, External Approach (ICD-10-PCS; principal; 2017-02-25)
PROC: 3E0P7GC Introduction of Other Therapeutic Substance into Female Reproductive, Via Natural or Artificial Opening (ICD-10-PCS; 2017-02-25)
PROC: 0HQ9XZZ Repair Perineum Skin, External Approach (ICD-10-PCS; 2017-02-25)
PROC: 30233N1 Transfusion of Nonautologous Red Blood Cells into Peripheral Vein, Percutaneous Approach (ICD-10-PCS; 2017-02-26)
DX: O42.12 Full-term premature rupture of membranes, onset of labor more than 24 hours following rupture (principal); O70.0 First degree perineal laceration during delivery; O99.02 Anemia complicating childbirth; O99.334 Smoking (tobacco) complicating childbirth; F17.210 Nicotine dependence, cigarettes, uncomplicated; Z3A.39 39 weeks gestation of pregnancy; Z37.0 Single live birth
CPT/HCPCS: 36415; 36430; 59025; 84112; 85014; 85018; 85027; 86850; 86900; 86901; 86920; 86921; 86922; A9270-GY; J0290; J2300; J2795; J3010; J7030; J7050; J7120; P9016

== ENCOUNTER 2017-06-18 15:33 | Emergency (ER) | payer MEDICAID ==
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
[2017-06-18 17:26] VITALS: BP 138/90
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
== END 2017-06-18 17:24 | disposition home or self-care (01) ==
LOC: MW.ED 15:33
DX: S81.012A Laceration without foreign body, left knee, initial encounter (principal); S80.02XA Contusion of left knee, initial encounter; K21.9 Gastro-esophageal reflux disease without esophagitis; F32.9 Major depressive disorder, single episode, unspecified; F41.9 Anxiety disorder, unspecified; E66.9 Obesity, unspecified; F17.210 Nicotine dependence, cigarettes, uncomplicated; Z87.442 Personal history of urinary calculi; Z79.899 Other long term (current) drug therapy; Z68.31 Body mass index [BMI] 31.0-31.9, adult; Y04.2XXA Assault by strike against or bumped into by another person, initial encounter
CPT/HCPCS: 70450; 70450-26; 72125; 72125-26; 73562-26-LT; 73562-LT; 81025; 99283; 99284-25

== ENCOUNTER 2020-01-03 09:10 | Emergency (ER) | payer SELFPAY ==
--- NOTE | 2020-01-03 11:07 | CR ---
Right knee: AP, lateral and sunrise patellar views of the right knee were obtained. Comparison: No prior right knee exam. Medial and lateral joint spaces are maintained in height. No joint effusion is seen. No fracture or other bony abnormality is identified. Impression: 1. No abnormality is identified on 3 view right knee exam. Diagnostic code #1 This report was dictated in [place] Standard Time
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
[2020-01-03 11:27] VITALS: BP 145/103; PULSE 103
== END 2020-01-03 11:27 | disposition home or self-care (01) ==
LOC: MW.ED 09:10
DX: M25.561 Pain in right knee (principal); F41.9 Anxiety disorder, unspecified; F32.9 Major depressive disorder, single episode, unspecified; F17.210 Nicotine dependence, cigarettes, uncomplicated; Z79.899 Other long term (current) drug therapy; V89.2XXA Person injured in unspecified motor-vehicle accident, traffic, initial encounter
CPT/HCPCS: 73562-26-RT; 73562-RT; 99283; 99283-25

== ENCOUNTER 2021-11-24 10:46 | Emergency (ER) | payer OTHER ==
[2021-11-24] MEDS ORDERED: Acetaminophen 325 MG Tab PO ONE (11:23)
[2021-11-24] MEDS ORDERED: Ketorolac 30 MG/ML SDV IM STA (13:17)
[2021-11-24] MEDS ORDERED: Ondansetron 4 MG Tab.DIS PO ONE (13:22)
[2021-11-24 15:04] VITALS: BP 115/66; PULSE 94
== END 2021-11-24 14:54 ==
LOC: MW.ED 10:46
DX: N13.2 Hydronephrosis with renal and ureteral calculous obstruction (principal); K21.9 Gastro-esophageal reflux disease without esophagitis; E66.9 Obesity, unspecified; Z68.33 Body mass index [BMI] 33.0-33.9, adult; Z72.0 Tobacco use
CPT/HCPCS: 74176; 81001; 81025; 96372; 99284; A9270; J1885